=== PATIENT | male | born 1970 | race Caucasian/White ===

== ENCOUNTER 2019-05-07 10:32 | Emergency (ER) | payer OTHER, SELFPAY ==
[2019-05-07 10:34] VITALS: BP 145/89; PULSE 112; RESP 18; TEMP 36.7; O2SAT 98
--- NOTE | 2019-05-07 10:40 | W.ED.GENAD ---
Discharge Plan Disposition Patient Disposition: HOME Discharge Details Chief Complaint: Orthopedic Clinical Impression: Injury of left shoulder Primary Care Provider: Kennedy Vyas ED Provider: Rufus Esparza Discharge Instructions Instructions: Shoulder Sprain (ED), Shoulder Pain (ED) Additional Instructions: Your x-rays were negative for broken bones or dislocation. We will be placing you into a simple sling for the next 2 to 3 days. He should be hearing back from orthopedics during that time. Take Tylenol 500 mg 2 pills every 8 hours. Take ibuprofen 200 mg 3 pills every 8 hours. Return to the emergency department should your pain significantly increased. Referrals: Angel Victoria MD [ [facility] STAFF PHYSICIAN] - 3 days Discharge Data Discharge Date/Time-TO BE ENTERED AT DEPARTURE: 05/07/19 11:37 Medical Decision Making This is a nontoxic-appearing 49-year-old male with left shoulder injury just prior to arrival. He states that he felt a pop when he fell. Neurovascularly intact on exam. No C-spine tenderness. Palpation of the lateral deltoid and supraspinatus muscle elicit pain. He is unwilling to actively range his left shoulder. Severe pain with passive range of motion. X-rays are negative for acute fracture or dislocation. Tylenol 1000 mg p.o. and Toradol 50 mg IV provided. Discussed the negative x-ray and need for orthopedic follow-up as he may have subluxed his shoulder and/or sustained a labral injury. Rotator cuff pathology at play as well. Will place patient into a simple sling for the next 24 to 48 hours. Return precautions provided. HPI General Date/Time Provider Initiated Documentation: 05/07/19 10:34. HPI Narrative: Patient is a 49-year-old male with a significant history of opiate dependency now recovered who presents to the emergency department with left shoulder pain status post just prior to arrival. Patient states that he fell down an icy hill and heard 3 pops in his left shoulder. He fell on an outstretched left arm. He denies any head or neck trauma. He states that he feels [id number] in his left hand. He has been unable to remove the left shoulder since the fall. Related Data Allergies Allergy/AdvReac Type Severity Reaction Status Date / Time No Known Allergies Allergy Unverified 05/07/19 10:43 General Stated Complaint: Orthopedic TRESA: 3 Review of Systems Cardiovascular Cardiovascular: Denies chest pain, Denies claudication and Denies dyspnea Respiratory Respiratory: Denies dyspnea Musculoskeletal Musculoskeletal: Denies back pain, Denies deformity, Reports limited range of motion, Denies muscle cramps, Denies muscle weakness, Denies numbness and Reports tingling Integumentary/Breasts Skin/Breast: Denies change in pigmentation and Denies skin swelling Neurologic Neurologic: Denies numbness, Reports tingling and Denies paresthesias [facility] Social History Smoking/Tobacco Use Status: Current every day Alcohol Intake: current Alcohol Intake frequency: a few times a week Drug use: Current Sobriety Substance use type: former substance user and marijuana Do you feel safe at home: Yes Exam Const General: cooperative and in distress mild Orientation: awake and oriented x3 HENMT Head: normal to inspection Ears: hearing grossly normal bilaterally Eyes General: appearance normal, both eyes and all related structures Neck Neck: normal visual inspection, full ROM, no lymphadenopathy and no midline deformity Chest Chest: normal inspection of the chest Resp Effort & Inspection: normal respiratory effort Auscultation: clear to auscultation bilaterally Cardio Pulses: normal peripheral pulses GI Inspection: normal to inspection Back/Spine/Pelvis Cervical Spine: normal cervical lordosis and cervical ROM normal Skin General skin exam: no rashes or lesions noted Neuro Cranial Nerves: CN's II-XI intact bilaterally Motor: muscle tone normal throughout Sensory Exam: no sensory deficits noted Extrem Left upper extremity: normal capillary refill and shoulder/upper arm Details: tenderness Location: of the proximal humerus, of the scapula, of the mid-shaft humerus and over the deltoid bursa
--- NOTE | 2019-05-07 10:58 | DI.RAD_ITS ---
EXAM: XR SHOULDER LT COMPLETE 2+V INDICATION: severe lateral pain s/p fall. NV intact. COMPARISON: No exams were available for comparison TECHNIQUE: 2D digital imaging was performed. FINDINGS: No fracture or dislocation is seen. There is spurring at the AC joint and tip of the acromion. There is mild narrowing at the glenohumeral joint and mild spurring at the glenoid. Spurring is also note d at the lesser tuberosity. IMPRESSION: Degenerative changes. No acute abnormality.
[2019-05-07] MEDS: Acetaminophen 500 MG TAB 1000 MG PO (11:35)
[2019-05-07] MEDS: Ketorolac 15 MG/ML VIAL IVP (11:35)
== END 2019-05-07 11:37 | disposition home or self-care (01) ==
LOC: ER 11:38
PROVIDERS: Emergency Provider Physician Assistant; PCP Internal Medicine
DX: S49.92XA Unspecified injury of left shoulder and upper arm, initial encounter (principal); R20.2 Paresthesia of skin; W00.0XXA Fall on same level due to ice and snow, initial encounter
CPT/HCPCS: 96374; 99284; 73030; J1885; L3650

== ENCOUNTER 2024-01-01 16:12 | Outpatient (REF) | payer OTHER, SELFPAY ==
[2024-01-01 20:16] LABS: BUN 5 mg/dL (7-18); CREATININE 0.9 mg/dL (0.70-1.30); Calcium 9.5 mg/dL (8.5-10.1); Chloride 105 mmol/L (98-107); Estimated GFR 101.49 (mL/min/1.73m2); Glucose 97 mg/dL (74-106); Potassium 4.6 mmol/L (3.5-5.1); Sodium 142 mmol/L (136-145)
== END 2024-01-01 16:13 | disposition home or self-care (01) ==
LOC: NCHCN 16:12
PROVIDERS: PCP Internal Medicine; Visit Provider Nurse Practitioner Family
DX: M79.602 Pain in left arm (principal)
CPT/HCPCS: 80048